=== PATIENT | female | born 1975 | race African-American/Black ===

== ENCOUNTER 2021-07-17 07:46 | Emergency (ER) | payer MEDICAID ==
[~2021-07-17] VITALS: Ht 167.6 cm; Wt 89.0 kg
[2021-07-17 09:00] VITALS: BP 143/88
== END 2021-07-17 09:00 | disposition home or self-care (01) ==
LOC: ER 08:08
DX: F41.9 Anxiety disorder, unspecified (principal)
CPT/HCPCS: 99283